=== PATIENT | male | born 1990 | race Caucasian/White ===

== ENCOUNTER 2018-09-09 16:05 | Emergency (ER) | payer OTHER ==
[2018-09-09] MEDS ORDERED: IBUPROFEN 600 MG TABLET ONE (16:34)
== END 2018-09-09 17:17 | disposition home or self-care (01) ==
LOC: EDH 16:05
DX: L02.01 Cutaneous abscess of face (principal); F41.9 Anxiety disorder, unspecified; F32.9 Major depressive disorder, single episode, unspecified; F43.10 Post-traumatic stress disorder, unspecified; Z98.890 Other specified postprocedural states; Z72.0 Tobacco use; Z88.0 Allergy status to penicillin; Z88.1 Allergy status to other antibiotic agents; Z88.8 Allergy status to other drugs, medicaments and biological substances

== ENCOUNTER 2025-03-25 23:08 | Emergency (ER) | payer SELFPAY ==
[~2025-03-25] VITALS: Ht 195.6 cm; Wt 97.1 kg
--- NOTE | 2025-03-25 23:16 | ERN ---
ED Note History of Present Illness Stated Complaint: C/O LT EARACHE, BODY CRAMPS, CONSTIPATION Chief Complaint: Multiple Complaints Time Seen by MD: 23:14 Dictation: This is a 34-year-old male who presented to the emergency room with multiple somatic [id number] earache that started a few days ago and he has tried putting peroxide, ear drops and also corn starch as instructed by his mother . He stated that he could not hear from his left ear at all. He also reports constipation. He has a history of ADHD and takes Adderall total 90 mg a day since his school years. No nausea vomitings diarrhea hematemesis or melena no fevers chills or rigors no bleeding or drainage from the ear. Temperature 98� pulse 113 respirations 20 blood pressure 122/97 with a pulse oximetry of 98% Allergies: Coded Allergies: Penicillins (Unverified Allergy, Unknown, 03/25/25) amoxicillin (Unverified Allergy, Unknown, 03/25/25) Home Meds Active Scripts Sennosides/Docusate Sodium (Senna Plus 8.6-50 mg Tablet) 8.6 Mg-50 Mg Tablet, 1 TAB PO DAILY for constipation for 20 Days, #20 TAB 0 Refills Prov:ALON EPSTEIN MD 03/26/25 Past Medical History Past Medical History: Other (ADHD) Family History: Negative RN Note Reviewed/Agreed w/PFSH: Yes Review of System Dictation Constitutional: Negative for fever,chills, and weight loss Eyes: Negative for injury, pain,redness, and discharge ENT: Negative for injury,pain or swelling positive for left earache Cardiovascular: Negative for chest pain, palpitations, and edema Respiratory: Negative for shortness of breath, cough, and wheezing, Abdomen/GI: Negative for abdominal pain, nausea, vomiting, diarrhea, and positive for constipation Back: Negative for injury and pain : Negative for injury, bleeding and discharge MS/Extremity: Negative for injury and deformity Skin: Negative for rash, and discoloration Neuro: Negative for headache, weakness, numbness, tingling, and seizure Psych: Negative for suicide ideation, homicidal ideation, and hallucinations Initial Vital Sign VS Vital Signs Date Time Temp Pulse Resp B/P (MAP) Pulse Ox O2 Delivery O2 Flow Rate FiO2 03/25/25 23:11 98.1 113 20 122/97 98 Room Air 03/25/25 23:37 0 21 Physical Exam Dictation General: awake, alert, NAD Head/Face: Normocephalic, atraumatic Eyes: PERRL, EOMI, vision at baseline ENT: oral cavity clear, TMs clear, no signs of infection both the ear canals are completely blocked with large amount of cerumen but I do not see any redness purulent drainage.. Behind the left ear he does have a mass lesion very soft and bluish discoloration Neck: Trachea midline, supple, no nuchal rigidity Cardiovascular: RRR, normal S1/S2, No MRGs, no JVD Respiratory: CTAB, no respiratory distress, No rales or wheezes Abdomen: Soft, non-tender, non-distended, normal bowel sounds, no guarding or rebound. Skin: Warm, dry, normal turgor, no rash MS/Extremity: Pulses equal, no cyanosis, neurovascular intact, FROM Neuro: COAx4, GCS 15, strength 5/5, CN 2-12 intact, normal cerebellar exam, normal gait, Psych: Normal behavior, mood, and affect normal Extremities-trace edema without any palpable cords, Homans sign is negative Results (Laboratory/Radiology) Labs Reviewed?: Yes ED Course ED Course Orders Procedure Category Date Status Time Ketorolac PHA 03/25/25 Complete Tromethamine 30mg/Ml 23:30 Cyclobenzaprine Hcl PHA 03/25/25 Complete (Cyclobenzaprine Hcl 23:30 Current Medications Medications (Trade) Dose Ordered Sig/Laura Route PRN Reason Start Time Stop Time Status Last Admin Dose Admin Cyclobenzaprine HCl (Cyclobenzaprine HCl) 5 mg ONCE ONCE PO 03/25/25 23:30 03/25/25 23:31 DC 03/25/25 23:42 Ketorolac Tromethamine (toRADol) 30 mg ONCE ONCE IM 03/25/25 23:30 03/25/25 23:31 DC 03/25/25 23:42 Vital Signs Date Time Temp Pulse Resp B/P (MAP) Pulse Ox O2 Delivery O2 Flow Rate FiO2 03/25/25 23:37 98.4 108 18 126/84 98 Room Air* 0 21 03/25/25 23:11 98.1 113 20 122/97 98 Room Air I had a long discussion with the patient and explained to him that we would address his ears and deafness likely related to impacted cerumen. The constipation is likely related to his stimulant and he verbalized understanding. We will give him PRN laxatives and stool softener for bowel regimen and discharge him to follow up with his PCP Medical Decision Making MDM MDM: Differential diagnosis: Otitis, impacted cerumen, conduction loss, constipation is likely related to his ADHD medication Rationale: Tests considered and ordered secondary to shared decision making include: Previous outside records reviewed: Old ER visits. Risk of complication and/or morbidity or mortality of patient management: None Medications-Per medication reconciliation Need for hospitalization: Patient does not meet criteria for hospitalization. Need for emergency major/minor surgery: No There are no social concerns with this patient. Prescription drug management Prescriptions will include symptomatic care Patient's prior external medical records from other ER visits were reviewed by me as indicated. Prior testing and results from previous visits were reviewed. Prior tests were taken into account with medical decision making and resource utilization, independent historian/historians were used to obtain complete medical history. I independently interpreted the test that were performed, results were reviewed by me and considered findings on radiology if ordered. Medical management and examination interpretation discussions were had by me with other qualified healthcare professionals as indicated for the patient's care. Procedure Additional Procedures: other Progress Bilateral ear irrigation and ear wax removal.. Extremely large amounts of impacted cerumen was extracted from both the ears. Patient tolerated the procedure very well and admitted to feeling 100% better Problem List Problem List: (1) Constipation (2) ADHD (3) Impacted cerumen of both ears (4) Deafness in left ear DX & DISP Disposition: Discharge Departure Impression: Primary Impression: Impacted cerumen of both ears Additional Impressions: Deafness in left ear, Constipation, ADHD Condition: Stable Scripts Sennosides/Docusate Sodium (Senna Plus 8.6-50 mg Tablet) 8.6 Mg-50 Mg Tablet 1 TAB PO DAILY for constipation for 20 Days, #20 TAB 0 Refills Prov: ALON EPSTEIN MD 03/26/25 Additional Instructions: Patient and the caregiver have been informed of all the diagnostic tests and the imaging conducted during the today's visit to the emergency room and has verbalized understanding of the results I have personally reviewed and interpreted all diagnostic exams performed here in the ER today as well as the vital signs documented by the nursing staff. The patient is now being discharged to home and should follow up with the primary care physician or the specialist as directed by the ER staff. Follow-up with primary care provider in 1 to 2 days. Take medications as directed here in the emergency room. Okay to continue home medications unless otherwise discussed during your visit in the emergency room today. Return to your nearest emergency room if symptoms worsen or if there is no improvement. Call 911 if you need immediate assistance. Take Tylenol or Motrin over-the-co unter as needed and if no contraindications are present. Increase oral hydration. A wound culture or urine culture was ordered here in the emergency room department please follow-up with primary care provider and advise them to get repeat ports from our facility. If you had any Juanito wrap/splints that were applied here, please do not remove them until you see your primary care or specialty. Referrals: SELF,REFERRAL (PCP) ALON EPSTEIN MD March 25, 2025 23:16
[2025-03-25] MEDS: ketOROlac 30MG VIAL (30MG/ML) IM ONE (23:42)
[2025-03-25] MEDS: CYCLOBENZAPRINE HCL 10 MG TABLET PO ONE (23:42)
[2025-03-26] MEDS ORDERED: SENN-316 PO (01:17)
[2025-03-26 01:21] VITALS: BP 122/78; PULSE 92; RESP 16; TEMP 98.4; O2SAT 99
== END 2025-03-26 01:23 | disposition home or self-care (01) ==
LOC: EDH 23:08
DX: H61.23 Impacted cerumen, bilateral (principal); K59.00 Constipation, unspecified; F90.9 Attention-deficit hyperactivity disorder, unspecified type; Z88.0 Allergy status to penicillin
CPT/HCPCS: 99284; 69209; 96372; J1885